=== PATIENT | female | born 1945 | race Caucasian/White ===

== ENCOUNTER 2016-12-26 12:59 | Outpatient (CLI) | payer MEDICARE, OTHER | END 2016-12-26 13:00 | disposition home or self-care (01) | DX: M85.88 Other specified disorders of bone density and structure, other site (principal) ==

== ENCOUNTER 2017-01-23 | Outpatient (CLI) | payer MEDICARE, OTHER | END 2017-01-23 17:27 | disposition critical access hospital (66) | CPT/HCPCS: A0425; A0427 ==

== ENCOUNTER 2017-01-23 17:44 | Emergency (ER) | payer MEDICARE, OTHER ==
[2017-01-23] MEDS ORDERED: SODIUM CHLORIDE 0.9% 1,000 ML IV ONE (18:13)
[2017-01-23] MEDS ORDERED: ONDANSETRON 4 MG/2 ML VIAL IVP STA (18:13)
[2017-01-23] MEDS ORDERED: ONDANSETRON 4 MG/2 ML VIAL ONE (18:22)
[2017-01-23] MEDS ORDERED: ONDANSETRON ODT 4 MG Prepack 2 TL PRN (20:19)
[2017-01-23] MEDS ORDERED: ONDANSETRON ODT 4 MG Prepack 2 TL ONE (20:28)
== END 2017-01-23 20:43 | disposition home or self-care (01) ==
DX: K52.9 Noninfective gastroenteritis and colitis, unspecified (principal); I10 Essential (primary) hypertension; Z86.79 Personal history of other diseases of the circulatory system

== ENCOUNTER 2017-05-25 10:48 | Outpatient (CLI) | payer MEDICARE, OTHER ==
[2017-05-25 19:24] LABS: BASOPHILS % (AUTO) 0.5 %; EOSINOPHILS # (AUTO) 0.1 10^3/uL (0.0-0.7); EOSINOPHILS % (AUTO) 1.3 %; HCT - HEMATOCRIT 43.9 % (37.0-47.0); HGB - HEMOGLOBIN 14.3 g/dL (12.0-16.0); LYMPHOCYTES # (AUTO) 0.9 10^3/uL (1.5-3.5); LYMPHOCYTES % (AUTO) 10.9 %; MEAN CORPUSCULAR HEMOGLOBIN 29.5 pg (27.0-31.0); MEAN CORPUSCULAR HGB CONC 32.6 g/dL (32.0-36.0); MEAN CORPUSCULAR VOLUME 90.6 fL (81.0-99.0); MEAN PLATELET VOLUME 9.8 fL (7.9-10.8); MONOCYTES # (AUTO) 0.4 10^3/uL (0.0-1.0); MONOCYTES % (AUTO) 5.6 %; NEUTROPHILS # (AUTO) 6.4 10^3/uL (1.5-6.6); NEUTROPHILS % (AUTO) 81.7 %; RED BLOOD COUNT 4.84 10^6/uL (4.20-5.40); RED CELL DISTRIBUTION WIDTH 13.2 % (12.0-15.0); UNCORRECTED WHITE BLOOD COUNT 7.9 x10^3/uL; WHITE BLOOD COUNT 7.9 x10^3/uL (4.8-10.8)
[2017-05-25 20:24] LABS: ALBUMIN/GLOBULIN RATIO 1.3 (1.0-2.2); BILIRUBIN,TOTAL 0.8 mg/dL (0.2-1.0); BUN - BLOOD UREA NITROGEN 14 mg/dL (6-20); CALCIUM 9.6 mg/dL (8.5-10.3); CARBON DIOXIDE - CO2 31 mmol/L (21-32); CHLORIDE 102 mmol/L (101-111); CREATININE 0.7 mg/dL (0.4-1.0); GFR - MDRD 83 (>89); POTASSIUM 4.2 mmol/L (3.5-5.0); SODIUM 142 mmol/L (135-145); TOTAL PROTEIN 7.5 g/dL (6.7-8.2)
[2017-05-25 20:25] LABS: GLUCOSE 58 mg/dL (70-100)
== END 2017-05-25 10:49 | disposition home or self-care (01) ==
LOC: LAB.WCP 10:48
PROVIDERS: ATTEND Physician Assistant Medical
DX: N95.8 Other specified menopausal and perimenopausal disorders (principal); R79.9 Abnormal finding of blood chemistry, unspecified
CPT/HCPCS: 36415; 80053; 82670; 84443; 85025

== ENCOUNTER 2017-06-28 09:58 | Outpatient (CLI) | payer MEDICARE, OTHER ==
--- NOTE | 2017-06-29 17:14 | Mammography Report ---
DIGITAL SCREENING MAMMOGRAM: 06/28/2017 CLINICAL INDICATION: A 71-year-old with history of benign biopsies for screening. COMPARISON: 10/2015, 10/2011, 10/2010, 08/2009, 07/2008, 03/2007. TECHNIQUE: Routine CC and MLO projections as well as bilateral laterally exaggerated craniocaudal vi ews were obtained of the breasts. The breasts again demonstrate extremely dense parenchyma bilaterally, limiting the sensitivity of saúl mography. Coarse and punctate, typically benign calcifications are present. No suspicious masses, c lustered microcalcifications, or regions of architectural distortion are identified. IMPRESSION: BENIGN FINDINGS. RECOMMENDATION: ROUTINE ANNUAL SCREENING UNLESS OTHERWISE CLINICALLY INDICATED. BIRADS CATEGORY: 2, BENIGN FINDINGS. STANDARD QUALIFYING STATEMENTS 1. This examination was reviewed with the aid of Computed-Aided Detection (CAD). 2. A negative or b enign imaging report should not delay biopsy if clinically suspicious findings are present. Consider surgical consultation if warranted. More than 5% of cancers are not identified by imaging. 3. Dense breasts may obscure an underlying neoplasm. JOB #: [id number] EXT JOB #:[id number]
== END 2017-06-28 09:59 | disposition home or self-care (01) ==
LOC: DI 09:58
PROVIDERS: ATTEND Physician Assistant Medical
DX: Z12.31 Encounter for screening mammogram for malignant neoplasm of breast (principal)
CPT/HCPCS: 77067

== ENCOUNTER 2018-01-01 14:24 | Outpatient (CLI) | payer MEDICARE, OTHER ==
--- NOTE | 2018-01-02 11:55 | XRAY Report ---
DATE OF SERVICE: 01/01/2018 THREE VIEW BILATERAL HANDS: 01/01/2018 CLINICAL INDICATION: Osteoarthritis. COMPARISON: 01/08/2015. FINDINGS: AP, lateral, and oblique views of the bilateral hands demonstrate interval worsening of interphalangeal joint and first carpometacarpal joint osteoarthritis. There is no evidence of interval fracture. No radiopaque foreign body is seen in the soft tissues. IMPRESSION: WORSENING OF OSTEOARTHRITIS FROM 01/08/2015. TD: 01/02/2018 11:53
== END 2018-01-01 14:25 | disposition home or self-care (01) ==
LOC: DI 14:24
PROVIDERS: ATTEND Physician Assistant Medical
DX: M19.041 Primary osteoarthritis, right hand (principal); M19.042 Primary osteoarthritis, left hand

== ENCOUNTER 2018-07-27 08:00 | Outpatient (CLI) | payer MEDICARE, OTHER ==
[2018-07-27 12:29] LABS: ALBUMIN 3.9 g/dL (3.2-5.5); ALBUMIN/GLOBULIN RATIO 1.3 (1.0-2.2); ALKALINE PHOSPHATASE 43 IU/L (42-121); ALT ALANINE AMINOTRANSFERASE 15 IU/L (10-60); AST ASPARTATE AMINOTRANSFERASE 24 IU/L (10-42); BILIRUBIN,TOTAL 0.8 mg/dL (0.2-1.0); BUN - BLOOD UREA NITROGEN 14 mg/dL (6-20); CALCIUM 8.9 mg/dL (8.5-10.3); CARBON DIOXIDE - CO2 29 mmol/L (21-32); CHLORIDE 101 mmol/L (101-111); CHOL/HDL RATIO 3.9 (<4.4); CHOLESTEROL 203 mg/dL; CREATININE 0.7 mg/dL (0.4-1.0); GFR - MDRD 82 (>89); GLUCOSE 99 mg/dL (70-100); HDL CHOLESTEROL 52 mg/dL; LDL CHOLESTEROL,CALCULATED 132 mg/dL; LDL/HDL RATIO 2.5 (<4.4); SODIUM 136 mmol/L (135-145); VLDL CHOLESTEROL 19 mg/dL
[2018-07-27 12:32] LABS: EOSINOPHILS # (AUTO) 0.2 10^3/uL (0.0-0.7); EOSINOPHILS % (AUTO) 4.8 %; HGB - HEMOGLOBIN 13.7 g/dL (12.0-16.0); LYMPHOCYTES # (AUTO) 1.1 10^3/uL (1.5-3.5); LYMPHOCYTES % (AUTO) 20.6 %; MEAN CORPUSCULAR HGB CONC 33.7 g/dL (32.0-36.0); MEAN PLATELET VOLUME 9.6 fL (7.9-10.8); MONOCYTES # (AUTO) 0.4 10^3/uL (0.0-1.0); MONOCYTES % (AUTO) 7.8 %; NEUTROPHILS # (AUTO) 3.4 10^3/uL (1.5-6.6); NEUTROPHILS % (AUTO) 65.8 %; PLT - PLATELET COUNT 167 10^3/uL (130-450); RED BLOOD COUNT 4.58 10^6/uL (4.20-5.40); WHITE BLOOD COUNT 5.1 x10^3/uL (4.8-10.8)
== END 2018-07-27 08:01 | disposition home or self-care (01) ==
LOC: LAB.WCP 08:00
PROVIDERS: ATTEND Physician Assistant Medical
DX: I10 Essential (primary) hypertension (principal); E78.5 Hyperlipidemia, unspecified
CPT/HCPCS: 36415; 80053; 80061; 83721; 85025

== ENCOUNTER 2018-08-31 10:07 | Outpatient (CLI) | payer MEDICARE, OTHER ==
[2018-08-31 12:46] LABS: DIGOXIN 0.4 ng/mL
[2018-09-01 14:01] LABS: HEPATITIS C ANTIBODY NON-REACTIVE (NON-REACTIVE)
== END 2018-08-31 10:08 | disposition home or self-care (01) ==
LOC: LAB.WCP 10:07
PROVIDERS: ATTEND Physician Assistant Medical
DX: I47.1 Supraventricular tachycardia (principal); E04.1 Nontoxic single thyroid nodule; Z11.59 Encounter for screening for other viral diseases
CPT/HCPCS: 36415; 80162; 84443; 86803

== ENCOUNTER 2019-05-17 08:00 | Outpatient (CLI) | payer MEDICARE, OTHER | END 2019-05-17 23:59 | LOC: LAB.R 08:00 | PROVIDERS: ATTEND Family Medicine | DX: S90.01XD Contusion of right ankle, subsequent encounter (principal) | CPT/HCPCS: 87070; 87075; 87205 ==

== ENCOUNTER 2019-05-20 14:58 | Outpatient (CLI) | payer MEDICARE, OTHER ==
--- NOTE | 2019-05-21 11:01 | XRAY Report ---
Reason: ANKLE PAIN,RIGHT Procedure Date: 05/20/2019 Accession Number: [id number] / [id number] Procedure: WCP - Ankle 2 View RT CPT Code: FULL RESULT: EXAM: RIGHT ANKLE RADIOGRAPHY EXAM DATE: 05/20/2019 03:07 PM. CLINICAL HISTORY: Ankle pain,right. COMPARISON: None. TECHNIQUE: 2 views. FINDINGS: Bones: Normal. No fractures or bone lesions. Joints: Limited evaluation of the ankle mortise due to absence of a mortise view. Within these limitations, the ankle is normally aligned. Soft Tissues: There is marked soft tissue swelling in the region of the lateral malleolus. IMPRESSION: Marked soft tissue swelling without fracture or dislocation identified. RADIA
== END 2019-05-20 14:59 | disposition home or self-care (01) ==
LOC: DI.WCP 14:58
PROVIDERS: ATTEND Physician Assistant Medical
DX: M25.571 Pain in right ankle and joints of right foot (principal); M79.89 Other specified soft tissue disorders

== ENCOUNTER 2019-05-23 10:20 | Outpatient (CLI) | payer MEDICARE, OTHER ==
[2019-05-23 18:56] LABS: BASOPHILS # (AUTO) 0.1 10^3/uL (0.0-0.1); BASOPHILS % (AUTO) 0.6 %; EOSINOPHILS # (AUTO) 0.1 10^3/uL (0.0-0.7); EOSINOPHILS % (AUTO) 1.2 %; HGB - HEMOGLOBIN 13.8 g/dL (12.0-16.0); LYMPHOCYTES # (AUTO) 0.9 10^3/uL (1.5-3.5); LYMPHOCYTES % (AUTO) 10.9 %; MEAN CORPUSCULAR HEMOGLOBIN 29.1 pg (27.0-31.0); MEAN CORPUSCULAR HGB CONC 30.7 g/dL (32.0-36.0); MEAN CORPUSCULAR VOLUME 94.7 fL (81.0-99.0); MEAN PLATELET VOLUME 11.6 fL (7.9-10.8); MONOCYTES # (AUTO) 0.5 10^3/uL (0.0-1.0); MONOCYTES % (AUTO) 5.7 %; NEUTROPHILS # (AUTO) 6.7 10^3/uL (1.5-6.6); NEUTROPHILS % (AUTO) 81.2 %; PLT - PLATELET COUNT 213 10^3/uL (130-450); RED BLOOD COUNT 4.74 10^6/uL (4.20-5.40); RED CELL DISTRIBUTION WIDTH 13.8 % (12.0-15.0); WHITE BLOOD COUNT 8.2 x10^3/uL (4.8-10.8)
[2019-05-23 19:16] LABS: URIC ACID 3.9 mg/dL (2.6-7.2)
[2019-05-23 19:39] LABS: CRP - C-REACTIVE PROTEIN < 1.0 mg/dL (0-1.0)
== END 2019-05-23 23:59 | disposition home or self-care (01) ==
LOC: LAB.WCP 10:20
PROVIDERS: ATTEND Physician Assistant Medical
DX: S90.01XD Contusion of right ankle, subsequent encounter (principal)
CPT/HCPCS: 36415; 84550; 85025; 85651; 86140

== ENCOUNTER 2019-05-25 07:47 | Outpatient (CLI) | payer MEDICARE, OTHER ==
--- NOTE | 2019-05-27 09:18 | MRI Report ---
Reason: CONTUSION OF RIGHT ANKLE,SUBSEQUENT ENCOUNTER Procedure Date: 05/25/2019 Accession Number: [id number] / [id number] Procedure: MRI - Ankle RT W/O CPT Code: FULL RESULT: EXAM: RIGHT ANKLE/HINDFOOT MRI WITHOUT CONTRAST EXAM DATE: 05/25/2019 09:00 AM. CLINICAL HISTORY: Right ankle contusion. Object fell into ankle. Swelling and bruising. COMPARISON: 05/20/2019 radiograph. TECHNIQUE: Multiplanar, multisequence T1-weighted and fluid-sensitive sequences of the ankle/hindfoot without contrast. Other: None. FINDINGS: Bones: No fractures or subluxations. No marrow edema. No bone lesions. Articular Cartilage: Unremarkable. Ligaments: The anterior and posterior tibiofibular, anterior and posterior talofibular, and calcaneofibular ligaments are intact. The deep and superficial deltoid and spring ligaments are intact. Anterior Tendons: The tibialis anterior, extensor hallucis longus, and extensor digitorum longus tendons are unremarkable. Medial Tendons: The tibialis posterior, flexor digitorum longus, and flexor hallucis longus tendons are unremarkable. Lateral Tendons: The peroneus brevis and longus are unremarkable. Achilles Tendon: Moderate Achilles tendinosis is present. Musculature: No edema or fatty atrophy. Other: No effusions. The contents of the sinus tarsi and tarsal tunnel are unremarkable. No plantar fasciitis. Global mild subcutaneous edema is present. The patient has a hematoma in the subcutaneous tissues of the anterior lateral ankle. This measures 2.9 x 2.8 x 3.8 cm. This is T2 hyperintense and of mixed echogenicity on T1-weighted imaging. There are fluid-fluid levels within it. IMPRESSION: 1. Moderate Achilles tendinosis. 2. A 3.8 cm hematoma in the subcutaneous tissues of the anterolateral ankle. RADIA
== END 2019-05-25 07:48 | disposition home or self-care (01) ==
LOC: DI 07:47
PROVIDERS: ATTEND Physician Assistant Medical
DX: S90.01XA Contusion of right ankle, initial encounter (principal); M76.61 Achilles tendinitis, right leg

== ENCOUNTER 2019-06-03 08:00 | Outpatient (CLI) | payer MEDICARE, OTHER | END 2019-06-03 08:01 | disposition home or self-care (01) | LOC: LAB.WCP 08:00 | PROVIDERS: ATTEND Physician Assistant Medical | DX: I48.0 Paroxysmal atrial fibrillation (principal); Z79.01 Long term (current) use of anticoagulants ==

== ENCOUNTER 2019-07-08 08:00 | Outpatient (CLI) | payer MEDICARE, OTHER | END 2019-07-08 23:59 | disposition home or self-care (01) | LOC: LAB.WCP 08:00 | PROVIDERS: ATTEND Physician Assistant Medical | DX: I48.0 Paroxysmal atrial fibrillation (principal); Z79.01 Long term (current) use of anticoagulants ==

== ENCOUNTER 2019-07-22 08:00 | Outpatient (CLI) | payer MEDICARE, OTHER | END 2019-07-22 23:59 | disposition home or self-care (01) | LOC: LAB.WCP 08:00 | PROVIDERS: ATTEND Physician Assistant Medical | DX: I48.0 Paroxysmal atrial fibrillation (principal); Z79.01 Long term (current) use of anticoagulants ==

== ENCOUNTER 2019-08-05 08:00 | Outpatient (CLI) | payer MEDICARE, OTHER | END 2019-08-05 08:01 | disposition home or self-care (01) | LOC: LAB.WCP 08:00 | PROVIDERS: ATTEND Physician Assistant Medical | DX: I48.0 Paroxysmal atrial fibrillation (principal); Z79.01 Long term (current) use of anticoagulants ==

== ENCOUNTER 2019-08-19 08:00 | Outpatient (CLI) | payer MEDICARE, OTHER | END 2019-08-19 23:59 | disposition home or self-care (01) | LOC: LAB.WCP 08:00 | PROVIDERS: ATTEND Physician Assistant Medical | DX: I48.0 Paroxysmal atrial fibrillation (principal); Z79.01 Long term (current) use of anticoagulants ==

== ENCOUNTER 2019-08-20 11:45 | Outpatient (CLI) | payer MEDICARE, OTHER ==
--- NOTE | 2019-08-21 10:45 | Nuclear Medicine Report ---
Reason: OSTEOMYELITIS Procedure Date: 08/21/2019 Accession Number: [id number] / [id number] Procedure: NM - Bone 3-Phase CPT Code: FULL RESULT: EXAM: TRIPLE-PHASE BONE SCAN LIMITED EXAM DATE: 08/21/2019 10:09 AM. CLINICAL HISTORY: Osteomyelitis. COMPARISON: ANKLE RT W/O 05/25/2019 8:33 AM ANKLE 2 VIEW RT 05/20/2019 2:54 PM. TECHNIQUE: Patient was injected with 29.6 mCi of technetium 99m MDP intravenously with flow phase gamma camera imaging anteriorly over bilateral feet and ankles, 5 seconds per frame for 1 minute. Subsequently, blood pool images of the bilateral feet and ankles were obtained. The patient returned 3 hours later for multiple spot images of bilateral feet and ankles. Additional delayed 24 images of the bilateral feet and ankles were obtained. FINDINGS: Flow Phase: Symmetric blood flow to both feet and ankles. Blood pool phase: Moderately intense blood pool activity is noted in the lateral right ankle probably in the region of the patient's soft tissue wound. There is symmetric flow to bilateral to remaining portions of the bilateral feet and ankles. . Delayed Phase: Small focal areas of mildly intense activity are present in both mid feet in a distribution and with an appearance most consistent with degenerative changes. No focal abnormal bone activity in the lateral right ankle corresponding to the bone in close proximity to the soft tissue ulcer. No focal suspicious activity concerning for osteomyelitis. IMPRESSION: 1. No scintigraphic findings concerning for osteomyelitis. 2. Blood pool activity in the lateral right ankle soft tissues probably represent cellulitis in close proximity to the patient's ulcer. 3. Scattered bilateral midfoot activity suspicious for osteoarthritis. RADIA
== END 2019-08-20 11:46 | disposition home or self-care (01) ==
LOC: DI 11:45
PROVIDERS: ATTEND Registered Nurse Wound Care
DX: L98.499 Non-pressure chronic ulcer of skin of other sites with unspecified severity (principal)
CPT/HCPCS: 78315

== ENCOUNTER 2019-10-01 08:50 | Outpatient (CLI) | payer MEDICARE, OTHER ==
[2019-10-01 13:36] LABS: BASOPHILS % (AUTO) 0.9 %; EOSINOPHILS # (AUTO) 0.3 10^3/uL (0.0-0.7); EOSINOPHILS % (AUTO) 5.9 %; HGB - HEMOGLOBIN 13.2 g/dL (12.0-16.0); LYMPHOCYTES # (AUTO) 1.2 10^3/uL (1.5-3.5); LYMPHOCYTES % (AUTO) 26.9 %; MEAN CORPUSCULAR HEMOGLOBIN 29.3 pg (27.0-31.0); MEAN CORPUSCULAR HGB CONC 31.3 g/dL (32.0-36.0); MEAN CORPUSCULAR VOLUME 93.8 fL (81.0-99.0); MONOCYTES # (AUTO) 0.5 10^3/uL (0.0-1.0); MONOCYTES % (AUTO) 9.8 %; NEUTROPHILS # (AUTO) 2.6 10^3/uL (1.5-6.6); NEUTROPHILS % (AUTO) 56.3 %; PLT - PLATELET COUNT 191 10^3/uL (130-450); RED CELL DISTRIBUTION WIDTH 12.6 % (12.0-15.0); WHITE BLOOD COUNT 4.6 x10^3/uL (4.8-10.8)
[2019-10-01 14:07] LABS: ALBUMIN/GLOBULIN RATIO 1.3 (1.0-2.2); ALKALINE PHOSPHATASE 44 IU/L (42-121); ALT ALANINE AMINOTRANSFERASE 16 IU/L (10-60); AST ASPARTATE AMINOTRANSFERASE 24 IU/L (10-42); BILIRUBIN,TOTAL 0.6 mg/dL (0.2-1.0); BUN - BLOOD UREA NITROGEN 17 mg/dL (6-20); CALCIUM 9.2 mg/dL (8.5-10.3); CARBON DIOXIDE - CO2 31 mmol/L (21-32); CHLORIDE 101 mmol/L (101-111); CHOL/HDL RATIO 3.2 (<4.4); CHOLESTEROL 193 mg/dL; CREATININE 0.7 mg/dL (0.4-1.0); GFR - MDRD 82 (>89); GLUCOSE 90 mg/dL (70-100); HDL CHOLESTEROL 60 mg/dL; LDL CHOLESTEROL,CALCULATED 119 mg/dL; SODIUM 142 mmol/L (135-145); TOTAL PROTEIN 7.2 g/dL (6.7-8.2); VLDL CHOLESTEROL 14 mg/dL
== END 2019-10-01 23:59 | disposition home or self-care (01) ==
LOC: LAB.WCP 08:50
PROVIDERS: ATTEND Physician Assistant Medical
DX: E78.5 Hyperlipidemia, unspecified (principal); I48.0 Paroxysmal atrial fibrillation
CPT/HCPCS: 36415; 80053; 80061; 83721; 84443; 85025

== ENCOUNTER 2020-06-07 12:27 | Emergency (ER) | payer MEDICARE, OTHER ==
--- NOTE | 2020-06-07 12:52 | ED Physician Documentation ---
PD HPI ABD PAIN - Stated complaint Stated Complaint: LOWER ABD PX - Chief complaint Chief Complaint: Abd Pain - History obtained from History obtained from: Patient - History of Present Illness Timing - onset: How many days ago (2) Timing - duration: Days (2) Timing - details: Gradual onset, Still present, Waxing and waning Quality: Cramping, Aching, Pain Location: RLQ, Suprapubic, LLQ Radiation: No: Chest, Lower back Improved by: Laying still Worsened by: Position (lying flat), Palpation. No: Eating, Breathing Associated symptoms: Fever (2 nights ago, temp to 101 but better few hours later and has not returned.), Nausea, Constipation (no BM for 3 days (had one day prior to ablation, which was 2 days ago; no feeling of stool urgency).). No: Vomiting, Diarrhea Similar symptoms before: Has not had sx before Recently seen: Surgery (She had a cardiac ablation in [facility] cardiology for atrial fib flutter 2 days ago. She was not having any abdominal pain at that time. Onset of lower abdominal pain that evening that has persisted.) Review of Systems Constitutional: reports: Fever (2 days ago, brief). denies: Myalgias, Fatigue Nose: denies: Rhinorrhea / runny nose, Congestion Throat: denies: Sore throat Cardiac: denies: Chest pain / pressure, Palpitations Respiratory: denies: Cough GI: reports: Abdominal Pain, Nausea. denies: Vomiting, Constipation (not constipated per se, had last BM 3 days ago, but little PO the past 2 days.), Diarrhea, Bloody / black stool : denies: Dysuria, Frequency Musculoskeletal: denies: Back pain, Extremity swelling Neurologic: reports: Generalized weakness. denies: Focal weakness, Numbness, Near syncope PD PAST MEDICAL HISTORY - Past Medical History Past Medical History: Yes Cardiovascular: Hypertension, Atrial fibrillation, Arrhythmia Neuro: None Endocrine/Autoimmune: None, Other GI: None [employer]: None : None HEENT: None Psych: Depression, Anxiety Musculoskeletal: Osteoarthritis, Osteopenia Derm: None - Past Surgical History Past Surgical History: Yes General: Other /[employer]: Hysterectomy, Oophrectomy, Other Cardiovascular: Other - Present Medications Home Medications: Ambulatory Orders Medication Instructions Recorded Confirmed atenoloL [Atenolol] 50 mg PO BID 07/28/13 07/05/19 Flecainide [Tambocar] 100 mg PO BID 07/05/19 07/05/19 Warfarin [Coumadin] 0.5 mg PO DAILY 07/05/19 07/05/19 clonazePAM [Clonazepam] 0.25 - 0.5 tab PO BID PRN 07/05/19 07/05/19 Amox/Clav 875/125 [Augmentin] 1 each PO Q12H #14 tablet 06/07/20 Docusate Sodium 100 mg PO DAILY #30 capsule 06/07/20 Fluconazole [Diflucan] 150 mg PO ONCE #1 tablet 06/07/20 Hydrocodone/Acetaminophen [[place] 1 each PO Q6H PRN #15 tablet 06/07/20 5-325 Tablet] Promethazine [Phenergan] 25 mg PO Q6H PRN #15 tab 06/07/20 - Allergies Allergies/Adverse Reactions: Allergies Allergy/AdvReac Type Severity Reaction Status Date / Time adhesive tape AdvReac Unknown Verified 06/07/20 12:43 bacitracin AdvReac Rash Verified 06/07/20 12:43 [From Neosporin ([id number])] meperidine HCl * AdvReac Emesis Verified 06/07/20 12:43 [From Demerol] morphine AdvReac Anxiety Verified 06/07/20 12:43 neomycin AdvReac Rash Verified 06/07/20 12:43 [From Neosporin ([id number])] polymyxin B AdvReac Rash Verified 06/07/20 12:43 [From Neosporin ([id number])] - Social History Does the pt smoke?: No Smoking Status: Never smoker Does the pt drink ETOH?: No Does the pt have substance abuse?: No - Immunizations Immunizations are current?: Yes - POLST Patient has POLST: No PD ED PE NORMAL - Vitals Vital signs reviewed: Yes - General General: Alert and oriented X 3, Well developed/nourished, Other (She appears uncomfortable due to lower to mid abdominal pain) - HEENT HEENT: Pharynx benign - Neck Neck: Supple, no meningeal sign, No adenopathy - Cardiac Cardiac: RRR, No murmur - Respiratory Respiratory: No respiratory distress, Clear bilaterally - Abdomen Abdomen: Soft, Other (Bowel sounds are present and hyperactive throughout. There is moderate to significant tenderness in the lower abdomen to palpation as well as percussion. There is some mild rebound tenderness. The upper abdomen itself is not tender but does refer tenderness to the lower abdomen. ) - Female Female : Deferred, Other (The right inguinal area shows a bandage in place without any bruising localized tenderness nor hematoma palpable.) - Rectal Rectal: Deferred - Back Back: No CVA TTP - Extremities Extremities: No deformity, No tenderness to palpate, No edema, No calf tenderness / cord - Neuro Neuro: Alert and oriented X 3, No motor deficit, Normal speech Results - Vitals Vitals: Vital Signs - 24 hr 06/07/20 06/07/20 06/07/20 12:41 13:43 15:32 Temperature 36.6 C Heart Rate 62 67 64 Respiratory 20 18 16 Rate Blood Pressure 149/88 H 150/82 H 133/73 H O2 Saturation 99 100 99 06/07/20 16:16 Temperature 36.9 C Heart Rate 69 Respiratory 18 Rate Blood Pressure 129/80 O2 Saturation 98 Oxygen O2 Source Room air - Labs Labs: Laboratory Tests 06/07/20 06/07/20 06/07/20 12:45 13:40 13:40 WBC 13.2 H RBC 4.37 Hgb 12.8 Hct 40.6 MCV 92.9 MCH 29.3 MCHC 31.5 L RDW 13.1 Plt Count 156 MPV 11.0 H Neut # (Auto) 11.6 H Lymph # (Auto) 0.8 L [place] # (Auto) 0.7 Eos # (Auto) 0.0 Baso # (Auto) 0.0 Absolute Nucleated RBC 0.00 Nucleated RBC % 0.0 PT 27.2 H INR 2.5 H APTT 51.1 H Sodium Potassium Chloride Carbon Dioxide Anion Gap BUN Creatinine Estimated GFR (MDRD) Glucose Calcium Magnesium Total Bilirubin AST ALT Alkaline Phosphatase Total Protein Albumin Globulin Albumin/Globulin Ratio Lipase Urine Color YELLOW Urine Clarity CLEAR Urine pH 7.0 Ur Specific [place] <=1.005 Urine Protein NEGATIVE Urine Glucose (UA) NEGATIVE Urine Ketones NEGATIVE Urine Occult Blood SMALL H Urine Nitrite NEGATIVE Urine Bilirubin NEGATIVE Urine Urobilinogen 0.2 (NORMAL) Ur Leukocyte Esterase NEGATIVE Urine RBC None Seen Urine WBC 0-3 Ur Squamous Epith Cells NONE SEEN Urine Bacteria None Seen Ur Microscopic Review INDICATED Urine Culture Comments NOT INDICATED 06/07/20 13:40 WBC RBC Hgb Hct MCV MCH MCHC RDW Plt Count MPV Neut # (Auto) Lymph # (Auto) [place] # (Auto) Eos # (Auto) Baso # (Auto) Absolute Nucleated RBC Nucleated RBC % PT INR APTT Sodium 136 Potassium 3.8 Chloride 100 L Carbon Dioxide 28 Anion Gap 8.0 BUN 11 Creatinine 0.7 Estimated GFR (MDRD) 82 L Glucose 109 H Calcium 9.0 Magnesium 2.1 Total Bilirubin 0.9 AST 24 ALT 19 Alkaline Phosphatase 58 Total Protein 7.3 Albumin 4.1 Globulin 3.2 Albumin/Globulin Ratio 1.3 Lipase 31 Urine Color Urine Clarity Urine pH Ur Specific [place] Urine Protein Urine Glucose (UA) Urine Ketones Urine Occult Blood Urine Nitrite Urine Bilirubin Urine Urobilinogen Ur Leukocyte Esterase Urine RBC Urine WBC Ur Squamous Epith Cells Urine Bacteria Ur Microscopic Review Urine Culture Comments - Rads (name of study) abd/pelvic CT Radiology: Prelim report reviewed (Sigmoid diverticulitis with a segment of colitis. No perforation or abscess. No free fluid or signs of vascular abnormality or hematoma.), See rad report PD MEDICAL DECISION MAKING - ED course Complexity details: reviewed results (Acute diverticulitis), re-evaluated patient (She is feeling improved enough with some medicines and fluids here. She would prefer trying to go home. There is no complication of the diverticulitis and home therapy is a reasonable approach.), considered differential (She presents as possible diverticulitis or appendicitis but could also consider urinary tract infection. Given the timing after her ablation, I would also be concern for vascular perforation and hematoma or intraperitoneal bleeding. We will get a CT abdomen with contrast to evaluate for all these), d/w patient Departure - Departure Disposition: 01 Home, Self Care Clinical Impression: History of radiofrequency ablation procedure for cardiac arrhythmia, Acute diverticulitis Abdominal pain Qualifiers: Abdominal location: lower abdomen, unspecified Qualified Code(s): R10.30 - Lower abdominal pain, unspecified Condition: Stable Record reviewed to determine appropriate education?: Yes Instructions: ED Diverticulitis Follow-Up: Lavonne Hinds PA-C [Primary Care Provider] - Prescriptions: Amox/Clav 875/125 [Augmentin] 1 each PO Q12H #14 tablet Fluconazole [Diflucan] 150 mg PO ONCE #1 tablet Docusate Sodium 100 mg PO DAILY #30 capsule Hydrocodone/Acetaminophen [[place] 5-325 Tablet] 1 each PO Q6H PRN #15 tablet PRN Reason: Pain Promethazine [Phenergan] 25 mg PO Q6H PRN #15 tab PRN Reason: Nausea / Vomiting Comments: Small frequent fluids. Use the Augmentin antibiotic twice daily for a week. Promethazine if needed for nausea. Docusate stool softener daily for the next week or 2. Add Tylenol 4 times a day for pain and hydrocodone every 6 hours if needed for worse pain. Recheck if not improving well over the next 2 to 3 days and resolved in 3 to 5 days. Return sooner if worse.
[2020-06-07 13:08] LABS: BILIRUBIN,URINE NEGATIVE (NEGATIVE); GLUCOSE, URINE (UA) NEGATIVE (NEGATIVE); KETONES,URINE (UA) NEGATIVE (NEGATIVE); LEUKOCYTE ESTERASE, URINE NEGATIVE (NEGATIVE); NITRITE,URINE NEGATIVE (NEGATIVE); OCCULT BLOOD,URINE SMALL (NEGATIVE); PROTEIN,URINE NEGATIVE (NEGATIVE); UROBILINOGEN,URINE 0.2 (NORMAL) E.U./dL (NORMAL)
[2020-06-07 13:11] LABS: CLARITY,URINE CLEAR (CLEAR)
[2020-06-07 13:20] LABS: BACTERIA,URINE None Seen /HPF (None Seen); RBC,URINE None Seen /HPF (0-5); SQUAMOUS EPITHELIAL CELL,UR NONE SEEN (<= Few)
[2020-06-07] MEDS ORDERED: LORazepam 2 MG/ML VIAL IVP STA (13:22)
[2020-06-07] MEDS ORDERED: ONDANSETRON 4 MG/2 ML VIAL IVP STA (13:22)
[2020-06-07] MEDS ORDERED: SODIUM CHLORIDE 0.9% 1,000 ML IV STA (13:22)
[2020-06-07] MEDS ORDERED: fentaNYL 100 MCG/2 ML VIAL IVP STA ×2 (13:38→14:34)
[2020-06-07] MEDS ORDERED: IOVERSOL 320 100 ML VIAL IVP ONE ×2 (13:50→15:10)
[2020-06-07 14:08] LABS: BASOPHILS % (AUTO) 0.2 %; EOSINOPHILS % (AUTO) 0.2 %; HGB - HEMOGLOBIN 12.8 g/dL (12.0-16.0); LYMPHOCYTES # (AUTO) 0.8 10^3/uL (1.5-3.5); LYMPHOCYTES % (AUTO) 5.7 %; MEAN CORPUSCULAR HEMOGLOBIN 29.3 pg (27.0-31.0); MEAN CORPUSCULAR HGB CONC 31.5 g/dL (32.0-36.0); MEAN CORPUSCULAR VOLUME 92.9 fL (81.0-99.0); MONOCYTES # (AUTO) 0.7 10^3/uL (0.0-1.0); MONOCYTES % (AUTO) 5.1 %; NEUTROPHILS # (AUTO) 11.6 10^3/uL (1.5-6.6); NEUTROPHILS % (AUTO) 88.2 %; PLT - PLATELET COUNT 156 10^3/uL (130-450); RED BLOOD COUNT 4.37 10^6/uL (4.20-5.40); RED CELL DISTRIBUTION WIDTH 13.1 % (12.0-15.0); WHITE BLOOD COUNT 13.2 x10^3/uL (4.8-10.8)
[2020-06-07 14:13] LABS: INR 2.5 (0.8-1.2); PT - PROTHROMBIN TIME 27.2 secs (9.9-12.6)
[2020-06-07 14:20] LABS: PARTIAL THROMBOPLASTIN TIME 51.1 secs (24.9-33.3)
[2020-06-07 14:23] LABS: ALBUMIN 4.1 g/dL (3.2-5.5); ALBUMIN/GLOBULIN RATIO 1.3 (1.0-2.2); BILIRUBIN,TOTAL 0.9 mg/dL (0.2-1.0); CREATININE 0.7 mg/dL (0.4-1.0); MAGNESIUM 2.1 mg/dL (1.7-2.8); TOTAL PROTEIN 7.3 g/dL (6.7-8.2)
--- NOTE | 2020-06-07 15:31 | CT Report ---
PROCEDURE: Abdomen/Pelvis W INDICATIONS: mid/lower abd pain, 2 days post ablation afib CONTRAST: IV CONTRAST: Optiray 320 ml: 100 PO CONTRAST: *NO PO CONTRAST TECHNIQUE: After the administration of oral and intravenous contrast, 5 mm thick sections acquired from the diap hragms to the symphysis. 5 mm thick coronal and sagittal reformats were acquired. For radiation dos e reduction, the following was used: automated exposure control, adjustment of mA and/or kV accordin g to patient size. COMPARISON: None. FINDINGS: Image quality: Excellent. ABDOMEN: Lung bases: Atelectasis is noted within the lingula. Heart size is mildly prominent. Solid organs: Liver and spleen are normal in size and enhancement. Gallbladder is unremarkable. Bi liary system is non dilated. Pancreas enhances normally. No adrenal nodules. Kidneys demonstrate n ormal size and enhancement, without hydronephrosis. Right renal cyst is present. Peritoneum and bowel: Bowel loops are nonobstructive. No free fluid or air. Moderate scattered stoo l. Colonic diverticula are present. There is a very minimal appearance of pericolonic stranding in th e sigmoid colon. Nodes and vessels: No retroperitoneal or mesenteric adenopathy by size criteria. Aorta and inferior vena cava are normal in size. Miscellaneous: No ventral hernias. PELVIS: Genitourinary: Bladder wall thickness is normal. Miscellaneous: No inguinal hernias or adenopathy. Bones: No suspicious bony lesions. No vertebral body compression fractures. IMPRESSION: 1. Minimal appearance of pericolonic stranding within the sigmoid colon with colonic diverticula. Joby y early colitis cannot be excluded secondary to diverticulitis. Reviewed by: Hansa Taylor MD on 06/07/2020 3:30 PM PDT Approved by: Hansa Taylor MD on 06/07/2020 3:30 PM PDT Station ID: [id number]
[2020-06-07] MEDS ORDERED: KETOROLAC 30 MG/ML VIAL IVP STA (16:04)
[2020-06-07] MEDS ORDERED: DOCUSATE SODIUM 100 MG CAPSULE PO STA (16:04)
[2020-06-07] MEDS ORDERED: cefTRIAXone 1 GM VIAL IVP STA (16:04)
[2020-06-07 16:18] VITALS: BP 129/80
== END 2020-06-07 16:30 | disposition home or self-care (01) ==
LOC: ED 12:27
DX: K57.32 Diverticulitis of large intestine without perforation or abscess without bleeding (principal); I48.91 Unspecified atrial fibrillation; Z79.01 Long term (current) use of anticoagulants; I10 Essential (primary) hypertension
CPT/HCPCS: 36415; 74177; 80053; 81001; 83690; 83735; 85025; 85610; 85730; 96361; 96374; 96375; 96376; 99284; 99285; A9270; J2060; Q9967; 81003; 87086

== ENCOUNTER 2020-08-24 11:42 | Outpatient (CLI) | payer MEDICARE, OTHER ==
--- NOTE | 2020-08-24 12:16 | XRAY Report ---
PROCEDURE: Knee 3 View BILAT INDICATIONS: KNEE PAIN,BILATERAL TECHNIQUE: 4 views of the bilateral knee(s) were acquired. COMPARISON: None. FINDINGS: Bones: No fractures or dislocations. Mild bilateral tricompartmental osteoarthritis is seen more pro minent in medial femoral tibial compartments. No patellar subluxation. No suspicious bony lesions. Soft tissues: No joint effusion. No suspicious soft tissue calcifications. IMPRESSION: Mild bilateral tricompartmental osteoarthritis more prominent in medial femoral tibial c ompartment. Reviewed by: Osmany Awad MD on 08/24/2020 11:15 AM BO Approved by: Osmany Awad MD on 08/24/2020 11:15 AM AKJAYDEN Station ID: [id number]
== END 2020-08-24 11:43 | disposition home or self-care (01) ==
LOC: DI 11:42
PROVIDERS: ATTEND Physician Assistant Medical
DX: M17.0 Bilateral primary osteoarthritis of knee (principal)

== ENCOUNTER 2025-11-07 18:24 | Inpatient (IN) ==
--- NOTE | 2025-11-07 19:13 | ED Physician Documentation ---
History of Present Illness Stated complaint Stated Complaint: FEELING FAINT Chief complaint Chief Complaint: General History obtained from History obtained from: Patient, Family and EMS History of Present Illness Pain level max: 0 Pain level now: 0 Additonal information Additional information: Patient is a 79-year-old female who was brought in by ambulance tonight from home. Her accompanies her and gives most of the history. He states that she was recently at detox in [place] as she had been inappropriately using benzodiazepines for the past 3 to 4 months. He states that he thought they were going to taper her off of the benzodiazepines but they abruptly stopped them 2 days ago and started her on other medications. He states that she fell on October 27 and has been having some back pain since that time. He states that they went to the emergency department at [facility] today and was diagnosed with a closed L3 compression fracture. Had a negative head CT and pelvis CT reportedly. Reportedly had normal blood work as well. He states that she is not acting like herself. Slower to respond. Difficulty walking and weakness. She states that she has not been eating and drinking over the past 2 days and "feels terrible". She ended up taking about 1.5 mg of lorazepam and clonazepam when she got home today. She states that that did not help her feel better. No fevers or chills. No cough or congestion. No abdominal pain. No focal neurological deficits. Review of Systems Constitutional Denies: Fever or Chills Ears, nose, mouth, and throat Denies: Neck pain Respiratory Denies: Cough Gastrointestinal Denies: Abdominal pain or Vomiting Genitourinary Denies: Painful urination, Urinary frequency or Urinary urgency Musculoskeletal Denies: Neck pain Integumentary/Breast Denies: Rash Neurological Denies: Headache, Focal weakness or Weakness in extremities Meds/Allgy Home Medications Ambulatory Orders Medication Instructions Recorded Confirmed atenolol 25 mg tablet 50 mg PO BID 07/28/13 clonazepam 0.5 mg tablet 0.25 - 0.5 tab PO BID PRN An xiety 07/05/19 11/07/25 flecainide 50 mg tablet 100 mg PO BID 07/05/1911/07 warfarin 1 mg tablet 0.5 mg PO DAILY 07/05/1908/15 Augmentin 875 mg-potassium 1 ea PO Q12H #14 tabs 06/0711/07/25 clavulanate 125 mg tablet docusate sodium 100 mg capsule 100 mg PO DAILY ##30 11/07/25 hydrocodone 5 mg-acetaminophen 325 1 ea PO Q6H PRN Bina n #15 tabs 06/07/20 11/07/25 mg tablet (Lott) promethazine 25 mg tablet 25 mg PO Q6H PRN Nausea / Vo miting 06/07/20 #15 tabs Allergies Allergies Allergy/AdvReac Type Severity Reaction Status Date / Time adhesive tape AdvReac Unknown Verified 11/07/25 18:41 bacitracin (From Neosporin AdvReac Rash Verified 11/07/25 18:41 ([id number])) meperidine HCl * (From AdvReac Emesis Verified 11/07/25 18:41 Demerol) morphine AdvReac Anxiety Verified 11/07/25 18:41 neomycin (From Neosporin AdvReac Rash Verified 11/07/25 18:41 ([id number])) polymyxin B (From Neosporin AdvReac Rash Verified 11/07/25 18:41 ([id number])) PFSH Active Problems All Active Problems (Updated 11/07/25 @ 20:48 by Jermaine Wilder MD) Closed compression fracture of L3 vertebra (Acute) Polypharmacy (Acute) Altered mental status (Acute) Acute diverticulitis (Acute) History of radiofrequency ablation procedure for cardiac arrhythmia (Acute) Abdominal pain (Acute) Gastroenteritis (Acute) Anxiety (Acute) URI (upper respiratory infection) (Acute) PAC (premature atrial contraction) (Acute) Palpitations (Acute) Social History Social History Do you feel safe in your home environment?: Yes History of physical, verbal, emotional, or financial abuse?: No POLST Patient has POLST: No Exam Exam Vital Signs: Vital Signs x48h Temp Pulse Resp BP Pulse Ox 11/07/25 18:42 60 162/88 H 96 11/07/25 18:34 36.5 C 60 16 162/88 H 96 Constitutional normal general appearance and no apparent distress Patient is slow to respond HENMT normocephalic, head/scalp atraumatic and TMs normal bilaterally Dry lips and tongue Eyes PERRL and EOMs intact bilaterally Neck/C-Spine trachea midline and cervical spine nontender Respiratory breath sounds equal bilaterally and normal respiratory effort Cardiovascular normal heart rate noted and regular rhythm noted Gastrointestinal abdomen soft to palpation, nontender to palpation and nondistended Extremities full ROM Neurology oral communication instructor II-XII intact, no focal motor deficit noted, no sensory deficits noted, gait normal, speech normal and GCS 15 normal cerebellar testing Psychiatry mental status grossly normal and oriented x3 Skin skin color normal Results Vitals Vitals: Vital Signs - 24 hr 11/07/25 18:34 11/07/25 18:42 11/07/25 19:34 Temperature 36.5 C Temperature Source Temporal Artery Scan Pulse Rate 60 60 Respiratory Rate 16 Blood Pressure 162/88 H 162/88 H O2 Saturation 96 96 O2 Source Room air Room air Pain Intensity 10 7 11/07/25 20:11 11/07/25 20:15 11/07/25 20:34 Temperature Temperature Source Pulse Rate Respiratory Rate Blood Pressure O2 Saturation O2 Source Pain Intensity 8 8 8 Oxygen O2 Source Room air Labs Labs: Laboratory Tests 11/07/25 11/07/25 19:46 20:21 WBC 7.8 RBC 4.66 Hgb 14.2 Hct 44.6 MCV 95.7 MCH 30.5 MCHC 31.8 L RDW 11.9 L Plt Count 220 MPV 10.9 H Neut # (Auto) 6.1 Lymph # (Auto) 1.0 L Dickenson # (Auto) 0.6 Eos # (Auto) 0.1 Baso # (Auto) 0.0 Absolute Nucleated RBC 0.00 Nucleated RBC % 0.0 Sodium 140 Potassium 3.8 Chloride 105 Carbon Dioxide 29 Anion Gap 6.0 BUN 10 Creatinine 0.5 L Estimated GFR (MDRD) 119 Glucose 100 Calcium 8.7 Magnesium 2.0 Total Bilirubin 0.3 AST 16 ALT 13 Alkaline Phosphatase 72 Total Creatine Kinase 60 Total Protein 6.1 L Albumin 3.8 Globulin 2.3 Albumin/Globulin Ratio 1.7 Lipase 19 TSH 0.76 Urine Color Yellow Urine Clarity Clear Urine pH 7.0 Ur Specific [place] 1.010 Urine Protein Negative Urine Glucose (UA) Negative Urine Ketones Negative Urine Occult Blood Small Urine Nitrite Negative Urine Bilirubin Negative Urine Urobilinogen 0.2 (NORMAL) Ur Leukocyte Esterase Negative Urine RBC 0-5 Urine WBC 0-3 Ur Squamous Epith Cells MANY Squamous H Urine Bacteria None Seen Ur Microscopic Review INDICATED Urine Culture Comments NOT INDICATED Salicylates < 1.5 Urine Opiates Screen NEGATIVE Ur Buprenorphine Scrn NEGATIVE Ur Oxycodone Screen NEGATIVE Urine Methadone Screen NEGATIVE Urine Fentanyl Screen Negative Acetaminophen 11.9 Ur Barbiturates Screen POSITIVE H Ur Tricyclics Screen NEGATIVE Ur Phencyclidine Scrn NEGATIVE Ur Amphetamine Screen NEGATIVE U Methamphetamines Scrn NEGATIVE U Benzodiazepines Scrn POSITIVE H Urine Cocaine Screen NEGATIVE U Cannabinoids Screen NEGATIVE Ur Drug Screen Comment CUTOFF CONC BELOW: Ethyl Alcohol < 10.0 PD Medical Decision Making ED course Complexity details: reviewed results, re-evaluated patient, considered differential and d/w patient ED course: 79-year-old female with altered mental status, suspect this is likely secondary to polypharmacy secondary to recent influx of medications at the detox facility that she was at. She had a head CT that was reportedly negative earlier today at [facility] along with a reportedly negative pelvis CT. Reportedly her lumbar spine CT showed an L3 compression fracture consistent with her fall 2 weeks ago. Attempted to obtain records, was unable to obtain records tonight from [facility]. Patient did improve with IV fluids and time in the emergency department but is still not acting like herself per . Still slow to respond and appears altered. Given that she has persistent altered mental status, will place in observation overnight. Discussed with the hospitalist. May benefit from a telepsychiatry consult in the morning to help with medication adjustment. She may also need a taper from benzodiazepines. Discussed case with the hospitalist who accepts. This document was made in part using voice recognition software. While efforts are made to proofread this document, sound alike and grammatical errors may occur. Discharge Plan Discharge Patient Disposition: ED Place in Observation Condition: Stable Clinical Impression: Altered mental status, Polypharmacy, Closed compression fracture of L3 vertebra Prescriptions: No Action atenolol 25 MG tablet 50 mg PO BID clonazepam 0.5 MG tablet 0.25 - 0.5 tab PO BID PRN (Reason: Anxiety) flecainide 50 MG tablet 100 mg PO BID warfarin 1 MG tablet 0.5 mg PO DAILY hydrocodone-acetaminophen [Lott] 1 EACH tablet 1 ea PO Q6H PRN (Reason: Pain) Qty: 15 0RF docusate sodium 100 MG capsule 100 mg PO DAILY Qty: 30 0RF amoxicillin-pot clavulanate 1 TAB tablet 1 ea PO Q12H Qty: 14 0RF promethazine 25 MG tablet 25 mg PO Q6H PRN (Reason: Nausea / Vomiting) Qty: 15 0RF Print Language: Chilean Stand Alone Forms: PCP List
[2025-11-07] MEDS: SODIUM CHLORIDE 0.9% 1,000 ML IV STA (19:20)
[2025-11-07] MEDS: ACETAMINOPHEN 325 MG TABLET PO STA (19:34)
[2025-11-07 19:55] LABS: HCT - HEMATOCRIT 44.6 % (37.0-47.0); HGB - HEMOGLOBIN 14.2 g/dL (12.0-16.0); MEAN PLATELET VOLUME 10.9 fL (7.9-10.8); NRBC ABSOLUTE COUNT (AUTO) 0.00 x10^3/uL; NUCLEATED RED BLOOD CELLS AUTO 0.0 /100WBC; PLT - PLATELET COUNT 220 10^3/uL (130-450); RED CELL DISTRIBUTION WIDTH 11.9 % (12.0-15.0)
[2025-11-07 20:21] LABS: GLUCOSE, URINE (UA) Negative (NEGATIVE); KETONES,URINE (UA) Negative (NEGATIVE); OCCULT BLOOD,URINE Small (NEGATIVE)
[2025-11-07 20:33] LABS: AMPHETAMINE SCREEN,URINE NEGATIVE (NEGATIVE); BARBITURATE SCREEN,UR POSITIVE (NEGATIVE); BENZODIAZEPINES SCREEN, URINE POSITIVE (NEGATIVE); BUPRENORPHINE SCREEN, URINE NEGATIVE (NEGATIVE); COCAINE SCREEN URINE NEGATIVE (NEGATIVE); METHADONE SCREEN, URINE NEGATIVE (NEGATIVE); METHAMPHETAMINES SCREEN, URINE NEGATIVE (NEGATIVE); OPIATE SCREEN, URINE NEGATIVE (NEGATIVE); THC CANNABINOID SCREEN, URINE NEGATIVE (NEGATIVE)
[2025-11-07] MEDS: HYDROmorphone 0.5 MG/0.5 ML SYRINGE IVP STA (20:34)
[2025-11-07 20:43] LABS: ALT ALANINE AMINOTRANSFERASE 13 IU/L (10-60); AST ASPARTATE AMINOTRANSFERASE 16 IU/L (10-42); BUN - BLOOD UREA NITROGEN 10 mg/dL (6-20); CARBON DIOXIDE - CO2 29 mmol/L (21-32); CK- CREATINE KINASE 60 IU/L (30-223); CREATININE 0.5 mg/dL (0.6-1.3); ETOH - ETHANOL < 10.0 mg/dL; GFR - MDRD 119 (>89)
[2025-11-07 20:45] LABS: SQUAMOUS EPITHELIAL CELL,UR MANY Squamous (<= Few)
[2025-11-07] MEDS ORDERED: ONDANSETRON 4 MG/2 ML VIAL IVP PRN (21:52)
[2025-11-07] MEDS ORDERED: ACETAMINOPHEN 325 MG TABLET PO PRN (21:52)
--- NOTE | 2025-11-07 22:06 | HISTORY & PHYSICAL EXAMINATION ---
Chief Complaint Chief Complaint Chief Complaint: AMS History of Present Illness Admitted From Admitted From:: rehab facility History Obtained From Records Reviewed: PDMP, meds list from detox History obtained from: Patient and . History of Present Illness HPI Comment/Other: 79-year-old female who presents to the emergency department complaining of not feeling well. She has had a rough several months. She has a past medical history of atrial fibrillation, pacemaker placement, glaucoma, GERD, hypertension. 4 to 6 months ago she began to experience uncontrollable anxiety. She would wake up with night terrors. She would have uncontrollable feelings of anxiety and would be overcome by them. She saw her primary care doctor about this and began to take benzodiazepines. From the middle of April until currently she has multiple benzodiazepine prescriptions. This is per my review of her PDMP. She has been prescribed clonazepam, alprazolam, and lorazepam. It is difficult to ascertain exactly what drugs she has been taking when but it seems that she had previously been on clonazepam 0.5 and then for the last 6 weeks has been taking approximately 5 to milligram tablets of lorazepam a day. Her last benzodiazepine use was a milligram of lorazepam at 1230 today and 0.5 mg of clonazepam at 1700 today. She and her recognize that she was having a problem with thebenzodiazepine usage. What made them realize this was that she had a night terror, jumped up out of bed and then had a fall. This fall resulted in back pain. They then sought assistance. They ultimately checked into a rehab facility called [facility] in [place]. This was on 11/05/2025. She checked out of their very early this morning because she was having severe back pain which was not helped by the gabapentin and Tylenol that she was administered. She was having terrible back pain. Her then took her to the emergency department at [facility]. She had workup there which included a CT of the head and a CT of the L-spine. At that time she was diagnosed with an L3 compression fracture. This explained her back pain. She and her were unhappy with the treatment she received at [facility] and therefore he brought her home here to [facility]. The medication regimen that she was on at [facility] included a 6-day taper of phenobarbital, Tylenol as needed, clonidine 0.1 every 6 hours, gabapentin 100 to 300 mg 3 times daily as needed, hydroxyzine 50 to 100 mg 4 times daily as needed, Keppra 500 mg twice daily, Zofran 8 mg every 6 hours as needed, quetiapine 50 to 150 mg daily as needed. Her normal medications were included in these medications and they are latanoprost drops, omeprazole, rivaroxaban 20 mg daily, amlodipine 5 mg daily Upon arriving home. Her realizes that she has altered mental status. She is slower to respond. She is generally weak and having difficulty walking. She says she cannot find things within her home and she cannot speak correctly. She states that she has had very little to eat or drink over the last 2 days and just feels terrible. When she got home and felt terrible she tried to take several doses of benzodiazepines as detailed above. This did not make her feel better and therefore she decided to come to the emergency department. At baseline she is an active independent 79-year-old. She lives in a senior living community in [place] and is very happy there. She plays bridge and has coffee with friends quite often. She drives and meets all of her own needs. She lives with her . They have a son who lives in [place] and is available to them as needed. Her PCP is Dr. Mane at [facility]. She does have a POLST at home she states her CODE STATUS is DNR but okay to intubate. Esdras is surrogate medical decision maker. Meds/Allgy Home Medications Ambulatory Orders Medication Instructions Recorded Confirmed atenolol 25 mg tablet 50 mg PO BID 07/28/13 clonazepam 0.5 mg tablet 0.25 - 0.5 tab PO BID PRN An xiety 07/05/19 11/07/25 flecainide 50 mg tablet 100 mg PO BID 07/05/1911/07 warfarin 1 mg tablet 0.5 mg PO DAILY 07/05/1908/15 Augmentin 875 mg-potassium 1 ea PO Q12H #14 tabs 06/0711/07/25 clavulanate 125 mg tablet docusate sodium 100 mg capsule 100 mg PO DAILY ##30 11/07/25 hydrocodone 5 mg-acetaminophen 325 1 ea PO Q6H PRN Bina n #15 tabs 06/07/20 11/07/25 mg tablet (Livingston) promethazine 25 mg tablet 25 mg PO Q6H PRN Nausea / Vo miting 06/07/20 #15 tabs Allergies Allergies Allergy/AdvReac Type Severity Reaction Status Date / Time adhesive tape AdvReac Unknown Verified 11/07/25 18:41 bacitracin (From Neosporin AdvReac Rash Verified 11/07/25 18:41 ([id number])) meperidine HCl * (From AdvReac Emesis Verified 11/07/25 18:41 Demerol) morphine AdvReac Anxiety Verified 11/07/25 18:41 neomycin (From Neosporin AdvReac Rash Verified 11/07/25 18:41 ([id number])) polymyxin B (From Neosporin AdvReac Rash Verified 11/07/25 18:41 ([id number])) PFSH Active Problems All Active Problems (Updated 11/07/25 @ 22:21 by TYREE Luevano) Atrial fibrillation (Chronic) Closed compression fracture of L3 vertebra (Acute) Polypharmacy (Acute) Altered mental status (Acute) Acute diverticulitis (Acute) History of radiofrequency ablation procedure for cardiac arrhythmia (Acute) Abdominal pain (Acute) Gastroenteritis (Acute) Anxiety (Acute) URI (upper respiratory infection) (Acute) PAC (premature atrial contraction) (Acute) Palpitations (Acute) Social History Social History Smoking Status: Never smoker Do you feel safe in your home environment?: Yes History of physical, verbal, emotional, or financial abuse?: No POLST Patient has POLST: Yes POLST on file?: No POLST CPR Status: Do Not Attempt Resuscitation (DNAR) / Allow Natural Review of Systems Status of ROS: 10 or more systems reviewed and unremarkable except as noted in history and below Prior Level of Functionality: Independent does have a cane which she uses occasionally Exam Exam Vital Signs: Vital Signs x48h Temp Pulse Resp BP Pulse Ox 11/07/25 22:21 76 18 134/67 H 98 11/07/25 18:42 60 162/88 H 96 11/07/25 18:34 36.5 C 60 16 162/88 H 96 Constitutional normal general appearance and no apparent distress HENMT normocephalic, head/scalp atraumatic, oral mucous membranes normal and dentition normal Eyes PERRL, EOMs intact bilaterally, conjunctivae normal and no scleral icterus Neck/C-Spine trachea midline and cervical spine nontender Lymph no lymphadenopathy noted Chest inspection of chest normal Respiratory breath sounds equal bilaterally, normal respiratory effort and clear to auscultation bilaterally Cardiovascular normal heart rate noted and regular rhythm noted Gastrointestinal abdomen soft to palpation Back/Pelvis spine normal to inspection and no lumbar spine tenderness (lower back ttp) Extremities normal to inspection chronic edema and stasis changes to right ankle Neurology bilingual patient support caseworker II-XII intact, no focal motor deficit noted, gait normal, speech normal and GCS 15 she is slightly slow in her thinking and speech, but seems to be able to answer most of my questions appropriately. Psychiatry oriented x3 and cooperative slightly slow. Skin skin color normal and no rash Conclusion/Plan Problem List (1) Altered mental status: Plan: likely related to polypharmacy. See below. Discussed with Dr. Wilder in the emergency department decision was made to admit this patient to observation status. We will monitor her mental status. We will treat her benzodiazepine withdrawal with a long acting benzodiazepine which we will taper. We will monitor her for any seizure activity. I think it is quite possible that her mental status will clear overnight as she metabolizes the remainder of the medications that she has received in the last 24 to 48 hours. And she will be able to go home safely with her . Her neurological exam is nonfocal she just has general slowing. I believe this is not secondary to CVA. I will monitor the patient overnight on telemetry. For her anxiety I will consider getting a telepsych consultation. I will consult social work for assistance with both mental health resources and substance abuse resources. (2) Polypharmacy: Plan: The medication regimen that she was on at [facility] included a 6-day taper of phenobarbital, Tylenol as needed, clonidine 0.1 every 6 hours, gabapentin 100 to 300 mg 3 times daily as needed, hydroxyzine 50 to 100 mg 4 times daily as needed, Keppra 500 mg twice daily, Zofran 8 mg every 6 hours as needed, quetiapine 50 to 150 mg daily as needed. Her normal medications were included in these medications and they are latanoprost drops, omeprazole, rivaroxaban 20 mg daily, amlodipine 5 mg daily I think this patients AMS is related to polypharmacy. She seems to be slowly clearing to a normal mental status, but is not well enough to go home yet. She has a benzodiazepine addiction. I would like to slowly taper her off of benzodaizepines. She expresses the desire to stop these meds. She does need some help with her anxiety. I will start her on a very low dose of librium. 12.5mg every 6 hours. I will treat her symptoms w Clonidine, and hydryxoyzine as needed. She denies any past hx of addiction, never smoker, denies Etoh. (3) Closed compression fracture of L3 vertebra: Plan: Diagnosed earlier today and likely related to a fall that happened on 10 27 as she has had back pain since that time. At home she is on Livingston half a tablet several times a day as needed for chronic foot pain. We will reinstitute Livingston while she is here. We will give her Dilaudid if she has pain that is not controlled by the Livingston. I would like to have her seen by physical therapy but I am not sure I have the services available to her at this time. She tells me that she has a hx of osteopenia and has been on fosamax in the past. (4) Atrial fibrillation: Plan: Chronic longstanding atrial fibrillation. This patient has a pacemaker in place. I will continue her DOAC therapy. Substituting Eliquis for the Xarelto that she is on at home. She is on amlodipine 5 mg daily. I will continue that. I see other antiarrhythmics and cardiac medications on the chart but she does not give me a history of currently taking these. On the chart Plan I have spent 80 minutes in the care of this patient today. This includes time [id number], review and ordering of diagnostic imaging and laboratory studies and consultation with other providers. Monitoring the patient's signs symptoms, evaluation of medication effectiveness and patient's response to treatment. Lab Results Lab results reviewed: Yes 11/07/25 19:46 11/07/25 20:21 Core Measures Anticipated LOS I expect patient to be DC'd or transferred within 96 hours.: Yes DVT/VTE - Prophylaxis VTE/DVT Device ordered at admit?: Yes VTE/DVT Prophylaxis med ordered at admit?: No Not Ordered - Medical Reason: Not indicated (eliquis)
[2025-11-07] MEDS: LACTATED RINGERS 1,000 ML IV SCH (23:06)
[2025-11-07] MEDS: SODIUM CHLORIDE FLUSH 0.9% 10 ML SYRINGE IVP PRN (23:06)
[2025-11-07] MEDS: FLECAINIDE 50 MG TABLET PO SCH (23:09)
[2025-11-07] MEDS: APIXABAN 5 MG TABLET PO SCH (23:10)
[2025-11-08] MEDS: SODIUM CHLORIDE FLUSH 0.9% 10 ML SYRINGE IVP SCH (00:02)
[2025-11-08 01:02] LABS: ALT ALANINE AMINOTRANSFERASE 12.0 IU/L (10-60); AST ASPARTATE AMINOTRANSFERASE 17.0 IU/L (10-42); BUN - BLOOD UREA NITROGEN 8.0 mg/dL (6-20); CARBON DIOXIDE - CO2 28.0 mmol/L (21-32); CREATININE 0.5 mg/dL (0.6-1.3); GFR - MDRD 119.0 (>89)
[2025-11-08] MEDS: HYDROcod/ACETAM 5/325 MG TABLET PO PRN (02:40)
[2025-11-08] MEDS: HYDROmorphone 0.5 MG/0.5 ML SYRINGE IVP PRN (04:49)
[2025-11-08 05:23] LABS: HCT - HEMATOCRIT 42.2 % (37.0-47.0); HGB - HEMOGLOBIN 13.5 g/dL (12.0-16.0); MEAN PLATELET VOLUME 11.2 fL (7.9-10.8); NRBC ABSOLUTE COUNT (AUTO) 0.00 x10^3/uL; NUCLEATED RED BLOOD CELLS AUTO 0.0 /100WBC; PLT - PLATELET COUNT 189 10^3/uL (130-450); RED CELL DISTRIBUTION WIDTH 11.9 % (12.0-15.0)
[2025-11-08 05:43] LABS: BUN - BLOOD UREA NITROGEN 7.0 mg/dL (6-20); CARBON DIOXIDE - CO2 27.0 mmol/L (21-32); CREATININE 0.5 mg/dL (0.6-1.3); GFR - MDRD 119.0 (>89)
[2025-11-08] MEDS: LORazepam 2 MG/ML VIAL IVP ONE (11:45)
[2025-11-08] MEDS ORDERED: KETOROLAC 15 MG/ML VIAL IVP PRN (12:30)
--- NOTE | 2025-11-08 12:35 | PROVIDER PROGRESS NOTE ---
Subjective Prog Note Date Prog Note Date: 11/08/25 Subjective Subjective: Rates her anxiety at a 12, unable to talk to me. She was able to get a dose of ativan and it got better within [address] Montes spoke with patient and this AM, and gave her a dose of librium 25mg at about 8am. but the time I am seeing her, just before noon, she is complaining of this severe anxiety. About an hour after this, she is walking in the [place] with her cane, doing well. her is out briefly, getting lunch. Current Medications Current Medications Current Medications: Current Medications Generic Name Dose Route Start Last Admin Trade Name Freq PRN Reason Stop Dose Admin Acetaminophen 650 mg 11/07/25 21:52 Acetaminophen 325 Mg Tablet PO Q4HR PRN Pain 1 to 4, or Fever Hydrocodone Bitart/Acetaminophen 1 tab 11/07/25 21:52 11/08/25 02:40 Hydrocod/Acetam 5/325 Mg Tablet PO 1 tab Q4HR PRN Administration Pain 5 to 7 Amitriptyline HCl 50 mg 11/08/25 21:00 Amitriptyline 25 Mg Tablet PO QPM WILL Apixaban 5 mg 11/07/25 22:00 11/08/25 08:38 Apixaban 5 Mg Tablet PO 5 mg BID WILL Administration Chlordiazepoxide HCl 5 mg 11/08/25 12:03 Chlordiazepoxide 5 Mg Capsule PO Q2H PRN Agitation Clonidine HCl 0.1 mg 11/07/25 21:58 11/08/25 08:38 Clonidine 0.1 Mg Tablet PO 0.1 mg Q6H PRN Administration withdrawal symptoms Hydromorphone HCl 0.5 mg 11/07/25 21:52 11/08/25 04:49 Hydromorphone 0.5 Mg/0.5 Ml Syringe IVP 0.5 mg Q2H PRN Administration Pain 8 to 10 Hydroxyzine Pamoate 50 mg 11/08/25 07:03 Hydroxyzine Pamoate 25 Mg Capsule PO Q4H PRN anxiety Lidocaine 1 patch 11/08/25 13:00 Lidocaine Patch 4% TOP DAILY WILL Ondansetron HCl 4 mg 11/07/25 21:52 Ondansetron 4 Mg/2 Ml Vial IVP Q6HR PRN Nausea / Vomiting Polyethylene Glycol 17 gm 11/09/25 09:00 Polyethylene Glycol 3350 17 Gm Packet PO DAILY WILL Sodium Chloride 10 ml 11/07/25 21:52 11/08/25 04:49 Sodium Chloride Flush 0.9% 10 Ml Syringe IVP 10 ml PRN PRN Administration NEEDED PER PROVIDER ORDERS Sodium Chloride 10 ml 11/08/25 01:00 11/08/25 08:38 Sodium Chloride Flush 0.9% 10 Ml Syringe IVP 10 ml 0100,0900,1700 WILL Administration Objective Vital Signs/Intake & Output Reviewed Vital Signs: Yes Vital Signs: Vital Signs x48h Temp Pulse Resp BP Pulse Ox 11/08/25 08:50 36.5 C 61 16 180/87 H 97 11/08/25 04:38 36.5 C 61 18 135/68 H 97 Intake & Output: Intake & Output 11/05/25 11/06/25 11/07/25 11/08/25 23:59 23:59 23:59 23:59 Intake Total 1240 / 1240 1800 / 1800 Balance 1240 / 1240 1800 / 1800 Weight (kg) 61.5 kg Objective General Appearance: positive Alert, Mild distress and Anxious Eyes Bilateral: positive Normal inspection and Conjunctivae nml ENT: positive ENT inspection nml Neck: positive Nml inspection Respiratory: positive No respiratory distress and Breath sounds nml Cardiovascular: positive Regular rate & rhythm Abdomen: positive No distention Skin: positive Color nml Neurologic/Psychiatric: positive Oriented x3 Lab Results 11/08/25 04:39 11/08/25 04:39 Other Labs: Lab Results x24hrs 11/08/25 11/08/25 11/07/25 Range/Units 04:39 00:40 20:21 WBC 6.9 (4.8-10.8) x10^3/uL RBC 4.42 (4.20-5.40) 10^6/uL Hgb 13.5 (12.0-16.0) g/dL Hct 42.2 (37.0-47.0) % MCV 95.5 (81.0-99.0) fL MCH 30.5 (27.0-31.0) pg MCHC 32.0 (32.0-36.0) g/dL RDW 11.9 L (12.0-15.0) % Plt Count 189 (130-450) 10^3/uL MPV 11.2 H (7.9-10.8) fL Neut # (Auto) 5.1 (1.5-6.6) 10^3/uL Lymph # (Auto) 1.1 L (1.5-3.5) 10^3/uL Cherry # (Auto) 0.5 (0.0-1.0) 10^3/uL Eos # (Auto) 0.1 (0.0-0.7) 10^3/uL Baso # (Auto) 0.1 (0.0-0.1) 10^3/uL Absolute Nucleated RBC 0.00 x10^3/uL Nucleated RBC % 0.0 /100WBC Sodium 140 140 140 (135-145) mmol/L Potassium 3.5 3.7 3.8 (3.5-4.5) mmol/L Chloride 106 106 105 (101-111) mmol/L Carbon Dioxide 27 28 29 (21-32) mmol/L Anion Gap 7.0 6.0 6.0 (6-13) BUN 7 8 10 (6-20) mg/dL Creatinine 0.5 L 0.5 L 0.5 L (0.6-1.3) mg/dL Estimated GFR (MDRD) 119 119 119 (>89) Glucose 107 H 111 H 100 (74-104) mg/dL Calcium 8.9 8.8 8.7 (8.5-10.3) mg/dL Magnesium 2.1 2.0 (1.7-2.3) mg/dL Total Bilirubin 0.4 0.3 (0.2-1.0) mg/dL AST 17 16 (10-42) IU/L ALT 12 13 (10-60) IU/L Alkaline Phosphatase 66 72 (42-121) IU/L Total Creatine Kinase 60 (30-223) IU/L Total Protein 6.1 L 6.1 L (6.4-8.9) g/dL Albumin 3.9 3.8 (3.2-5.5) g/dL Globulin 2.2 2.3 (2.1-4.2) g/dL Albumin/Globulin Ratio 1.8 1.7 (1.0-2.2) Lipase 19 (11-82) U/L TSH (0.34-5.60) uIU/mL Urine Color Urine Clarity (CLEAR) Urine pH (5.0-7.5) PH Ur Specific [place] (1.002-1.030) Urine Protein (NEGATIVE) mg/dL Urine Glucose (UA) (NEGATIVE) mg/dL Urine Ketones (NEGATIVE) mg/dL Urine Occult Blood (NEGATIVE) Urine Nitrite (NEGATIVE) Urine Bilirubin (NEGATIVE) Urine Urobilinogen (NORMAL) E.U./dL Ur Leukocyte Esterase (NEGATIVE) Urine RBC (0-5) /HPF Urine WBC (0-5) /HPF Ur Squamous Epith Cells (<= Few) Urine Bacteria (None Seen) /HPF Ur Microscopic Review Urine Culture Comments Salicylates < 1.5 mg/dL Urine Opiates Screen (NEGATIVE) Ur Buprenorphine Scrn (NEGATIVE) Ur Oxycodone Screen (NEGATIVE) Urine Methadone Screen (NEGATIVE) Urine Fentanyl Screen (NEGATIVE) Acetaminophen 11.9 ug/mL Ur Barbiturates Screen (NEGATIVE) Ur Tricyclics Screen (NEGATIVE) Ur Phencyclidine Scrn (NEGATIVE) Ur Amphetamine Screen (NEGATIVE) U Methamphetamines Scrn (NEGATIVE) U Benzodiazepines Scrn (NEGATIVE) Urine Cocaine Screen (NEGATIVE) U Cannabinoids Screen (NEGATIVE) Ur Drug Screen Comment Ethyl Alcohol < 10.0 mg/dL 11/07/25 Range/Units 19:46 WBC 7.8 (4.8-10.8) x10^3/uL RBC 4.66 (4.20-5.40) 10^6/uL Hgb 14.2 (12.0-16.0) g/dL Hct 44.6 (37.0-47.0) % MCV 95.7 (81.0-99.0) fL MCH 30.5 (27.0-31.0) pg MCHC 31.8 L (32.0-36.0) g/dL RDW 11.9 L (12.0-15.0) % Plt Count 220 (130-450) 10^3/uL MPV 10.9 H (7.9-10.8) fL Neut # (Auto) 6.1 (1.5-6.6) 10^3/uL Lymph # (Auto) 1.0 L (1.5-3.5) 10^3/uL Cherry # (Auto) 0.6 (0.0-1.0) 10^3/uL Eos # (Auto) 0.1 (0.0-0.7) 10^3/uL Baso # (Auto) 0.0 (0.0-0.1) 10^3/uL Absolute Nucleated RBC 0.00 x10^3/uL Nucleated RBC % 0.0 /100WBC Sodium (135-145) mmol/L Potassium (3.5-4.5) mmol/L Chloride (101-111) mmol/L Carbon Dioxide (21-32) mmol/L Anion Gap (6-13) BUN (6-20) mg/dL Creatinine (0.6-1.3) mg/dL Estimated GFR (MDRD) (>89) Glucose (74-104) mg/dL Calcium (8.5-10.3) mg/dL Magnesium (1.7-2.3) mg/dL Total Bilirubin (0.2-1.0) mg/dL AST (10-42) IU/L ALT (10-60) IU/L Alkaline Phosphatase (42-121) IU/L Total Creatine Kinase (30-223) IU/L Total Protein (6.4-8.9) g/dL Albumin (3.2-5.5) g/dL Globulin (2.1-4.2) g/dL Albumin/Globulin Ratio (1.0-2.2) Lipase (11-82) U/L TSH 0.76 (0.34-5.60) uIU/mL Urine Color Yellow Urine Clarity Clear (CLEAR) Urine pH 7.0 (5.0-7.5) PH Ur Specific [place] 1.010 (1.002-1.030) Urine Protein Negative (NEGATIVE) mg/dL Urine Glucose (UA) Negative (NEGATIVE) mg/dL Urine Ketones Negative (NEGATIVE) mg/dL Urine Occult Blood Small (NEGATIVE) Urine Nitrite Negative (NEGATIVE) Urine Bilirubin Negative (NEGATIVE) Urine Urobilinogen 0.2 (NORMAL) (NORMAL) E.U./dL Ur Leukocyte Esterase Negative (NEGATIVE) Urine RBC 0-5 (0-5) /HPF Urine WBC 0-3 (0-5) /HPF Ur Squamous Epith Cells MANY Squamous H (<= Few) Urine Bacteria None Seen (None Seen) /HPF Ur Microscopic Review INDICATED Urine Culture Comments NOT INDICATED Salicylates mg/dL Urine Opiates Screen NEGATIVE (NEGATIVE) Ur Buprenorphine Scrn NEGATIVE (NEGATIVE) Ur Oxycodone Screen NEGATIVE (NEGATIVE) Urine Methadone Screen NEGATIVE (NEGATIVE) Urine Fentanyl Screen Negative (NEGATIVE) Acetaminophen ug/mL Ur Barbiturates Screen POSITIVE H (NEGATIVE) Ur Tricyclics Screen NEGATIVE (NEGATIVE) Ur Phencyclidine Scrn NEGATIVE (NEGATIVE) Ur Amphetamine Screen NEGATIVE (NEGATIVE) U Methamphetamines Scrn NEGATIVE (NEGATIVE) U Benzodiazepines Scrn POSITIVE H (NEGATIVE) Urine Cocaine Screen NEGATIVE (NEGATIVE) U Cannabinoids Screen NEGATIVE (NEGATIVE) Ur Drug Screen Comment CUTOFF CONC BELOW: Ethyl Alcohol mg/dL Assessment/Plan Problem List (1) Anxiety: Impression: Long discussion again with patient and . her anxiety is out of control and is severely lifestyle limiting. For instance, she is unable to even think about what she wants for lunch, but several minutes after being medicated with IV lorazepam, she is able to start to eat. She is horribly disturbed by nightmares. She does not have lilliputian images in these nightmares, but they are disturbing to her. She finds that they happen to her when she is asleep. they are not hallucinations. But she does wake up terrified from the imagery that she is experiencing. There is no hx of dementia in her family. She has tried different SSRIs to no effect, but the problem seems to be that she starts these medications, her anxiety worsens after several days, then she stops them. At that point, she is left with nothing but to go back on the benzodiazepines, which seem to help less and less. I am going to start her on some amitriptylline. Zan giving her a dose now, and will plan on a dose at bedtime. I am going to place her on a CIWA based Librium dosage. My plan is to see how much she needs to control her anxiety, then design a taper from that point down. The Elavil will be more simple to titrate up, even at home, every 2-3 days, to control her anxiety. As part of our discussion today, we talked about her symptoms. Several times, she says that she feels like a drug addict, and that she has a drug problem. 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 As I spend more time with this patient, I believe that she has severe, and uncontrolled anxiety. Escalation of benzodiazepines over the course of 6 months just left her with anxiety that was more and more out of control, and nothing else was helping. SSRIs, when she did take them for 2-4 days only made things worse for her. 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 For today, i am instituting a symptom triggered loading of librium. That should give me an idea of what her dosing should be. from that point, i can set a regimen and a taper. SSRI/SSNI are not going to work for this patient. She has no suicidal ideation. I am going to start her on amitriptylline. I am giving her a dose today, then a dose tonight. this medication can be titrated every 2-3 days, and does not have the therapeutic lag that is seen in the SSRI/SSNI class. (2) Altered mental status: Impression: This has resolved. This was related to polypharmacy, and was improving by the time she got up to the IP floor around 2200 last night. However, she called the RN about every hour all night. her symptoms were severe. She is having severe anxity today. it does not show in her VS or her PE, but she describes intense psychological discomfort. (3) Polypharmacy: Impression: The medication regimen that she was on at [facility] included a 6-day taper of phenobarbital, Tylenol as needed, clonidine 0.1 every 6 hours, gabapentin 100 to 300 mg 3 times daily as needed, hydroxyzine 50 to 100 mg 4 times daily as needed, Keppra 500 mg twice daily, Zofran 8 mg every 6 hours as needed, quetiapine 50 to 150 mg daily as needed. Her normal medications were included in these medications and they are latanoprost drops, omeprazole, rivaroxaban 20 mg daily, amlodipine 5 mg daily Her AMS is improved, but her anxiety is severe. I am proceeding with caution as we try to find a way to get her comfortable enough to transition home. (4) Closed compression fracture of L3 vertebra: Impression: IV dilaudid is helpful, [place] somewhat as well. Her renal function is normal. I will try some IV toradol PRN and add a lidoderm patch as well. (5) Atrial fibrillation: Impression: Chronic and stable, no RVR, I am stopping tele. Eliquis continued. This patient's diagnosis and treatment plan was discussed this AM with attending physician as a part of multi disciplinary rounding meeting. I have spent 65 minutes in the care of this patient today. This includes time [id number], review and ordering of diagnostic imaging and laboratory studies . Monitoring the patient's signs symptoms, evaluation of medication effectiveness and patient's response to treatment.
[2025-11-08] MEDS: AMITRIPTYLINE 10 MG TABLET PO ONE (14:39)
[2025-11-08] MEDS: AMITRIPTYLINE 25 MG TABLET PO SCH (20:23)
[2025-11-09 05:43] LABS: HCT - HEMATOCRIT 39.9 % (37.0-47.0); HGB - HEMOGLOBIN 12.8 g/dL (12.0-16.0); MEAN PLATELET VOLUME 10.6 fL (7.9-10.8); NRBC ABSOLUTE COUNT (AUTO) 0.00 x10^3/uL; NUCLEATED RED BLOOD CELLS AUTO 0.0 /100WBC; PLT - PLATELET COUNT 192 10^3/uL (130-450); RED CELL DISTRIBUTION WIDTH 11.9 % (12.0-15.0)
[2025-11-09] MEDS: LORazepam 2 MG/ML VIAL IVP PRN (05:46)
[2025-11-09 06:01] LABS: BUN - BLOOD UREA NITROGEN 9.0 mg/dL (6-20); CARBON DIOXIDE - CO2 28.0 mmol/L (21-32); CREATININE 0.6 mg/dL (0.6-1.3); GFR - MDRD 97.0 (>89)
--- NOTE | 2025-11-09 12:37 | Discharge Summary ---
"Discharge Summary Admit Date: 11/07/25 Discharge Date: 11/09/25 Discharging Provider: Mona Vazquez PA-C Primary Care Provider: Lavonne Hinds PA-C Code Status: Do Not Attempt Resuscitation DIAGNOSES Discharge Diagnoses with Status of Each Condition: Anxiety, persistent Altered mental status, resolved Polypharmacy, resolved L3 compression fracture Atrial fibrillation chronic and stable HPI History of Present Illness: 79-year-old female who presents to the emergency department complaining of not feeling well. She has had a rough several months. She has a past medical history of atrial fibrillation, pacemaker placement, glaucoma, GERD, hypertension. 4 to 6 months ago she began to experience uncontrollable anxiety. She would wake up with night terrors. She would have uncontrollable feelings of anxiety and would be overcome by them. She saw her primary care doctor about this and began to take benzodiazepines. From the middle of April until currently she has multiple benzodiazepine prescriptions. This is per my review of her PDMP. She has been prescribed clonazepam, alprazolam, and lorazepam. It is difficult to ascertain exactly what drugs she has been taking when but it seems that she had previously been on clonazepam 0.5 and then for the last 6 weeks has been taking approximately 5 to milligram tablets of lorazepam a day. Her last benzodiazepine use was a milligram of lorazepam at 1230 today and 0.5 mg of clonazepam at 1700 today. She and her recognize that she was having a problem with thebenzodiazepine usage. What made them realize this was that she had a night terror, jumped up out of bed and then had a fall. This fall resulted in back pain. They then sought assistance. They ultimately checked into a rehab facility called [facility] in [place]. This was on 11/05/2025. She checked out of their very early this morning because she was having severe back pain which was not helped by the gabapentin and Tylenol that she was administered. She was having terrible back pain. Her then took her to the emergency department at [facility]. She had workup there which included a CT of the head and a CT of the L-spine. At that time she was diagnosed with an L3 compression fracture. This explained her back pain. She and her were unhappy with the treatment she received at [facility] and therefore he brought her home here to [facility]. The medication regimen that she was on at [facility] included a 6-day taper of phenobarbital, Tylenol as needed, clonidine 0.1 every 6 hours, gabapentin 100 to 300 mg 3 times daily as needed, hydroxyzine 50 to 100 mg 4 times daily as needed, Keppra 500 mg twice daily, Zofran 8 mg every 6 hours as needed, quetiapine 50 to 150 mg daily as needed. Her normal medications were included in these medications and they are latanoprost drops, omeprazole, rivaroxaban 20 mg daily, amlodipine 5 mg daily Upon arriving home. Her realizes that she has altered mental status. She is slower to respond. She is generally weak and having difficulty walking. She says she cannot find things within her home and she cannot speak correctly. She states that she has had very little to eat or drink over the last 2 days and just feels terrible. When she got home and felt terrible she tried to take several doses of benzodiazepines as detailed above. This did not make her feel better and therefore she decided to come to the emergency department. At baseline she is an active independent 79-year-old. She lives in a fpc community in [place] and is very happy there. She plays bridge and has coffee with friends quite often. She drives and meets all of her own needs. She lives with her . They have a son who lives in [place] and is available to them as needed. Her PCP is Dr. Montemayor at [facility]. She does have a POLST at home she states her CODE STATUS is DNR but okay to intubate. Esdras is surrogate medical decision maker. CONSULTS | PROCEDURES Procedures: She had CT of the head and CT of the lumbar spine at [facility] on the date of admission. Reportedly significant for L3 fracture with a negative CT of the head. HOSPITAL COURSE Hospital Course: This is a 79-year-old female who has been seeking care for her anxiety for several months. She has failed treatment with SSRIs because she never takes them for more than several days due to increasing anxiety as she starts SSRIs. She has gotten multiple benzodiazepine prescriptions from multiple providers. She eventually checked herself into a detox center called [facility] for about a day and a half. She was given multiple medications as detailed in the history of present illness. When I initially met her she was suffering from altered mental status associated with these medications and was not safe to discharge home. 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 She has severe uncontrolled anxiety which is unrelenting and incredibly lifestyle limiting. Her TSH was within normal limits. She apparently had had a hx of hyperthyroid She had been off of this for over 1 week. Cardiac telemetry was monitored. There were no arrhythmias. She was admitted to our unit, placed on telemetry and we will let the medications to washout overnight. She improved but by the morning of hospital day 2 was incredibly anxious rating her anxiety at a 12 out of 10 and unable to engage in conversation. This was treated with IV Ativan so that the patient could have therapeutic interactions. From that point forward we worked on titration of Librium so that we could send her home on a reasonable taper. After much discussion it was decided that we would not attempt to restart her on any SSRI but instead we will try tricyclic antidepressant. She was given a dose of amitriptyline on the evening of hospital day 2 and rested fairly well through the evening. She did require some as needed Librium for control of her symptoms. She also required medication for control of her back pain while she was here. On the morning of hospital day 3 I was able to work with the patient and her and determine a plan for taper of Librium therapy. At the same time we will escalate her amitriptyline therapy. Patient has been more given a strict schedule for dosing of these medications. I discussed with the patient that she must follow the medication plan that I have presented to her. She trusts her to control her medications and he will assist her in this. I also discussed the black box warning regarding use of benzodiazepines with narcotics. This patient has chronic narcotic use, about 1.5 tablets of 5 mg [place]'s a day. Further complicating the [place] Ultimately working with the patient and her we will get her 2 days of lorazepam and then she will begin the Librium taper that I have prescribed. This patient has experienced difficulties in the healthcare system getting the care that she feels she needs. I explained to her that responsiveness of healthcare systems and providers can be very frustrating. I feel that she would benefit from some dedicated mental health care. And for that reason, I am recommending referral to our care of psychiatric nurse practitioners. She also would like to reestablish primary care within the [facility] system. She has previously been seen by TYREE Hinds, and appreciated TYREE Hinds as a provider. Have discussed with social work and will try to arrange for outpatient care for this patient. She was discharged home in the care of her in stable condition. ALLERGIES Allergies Allergy/AdvReac Type Severity Reaction Status Date / Time adhesive tape AdvReac Unknown Verified 11/07/25 18:41 bacitracin (From Neosporin AdvReac Rash Verified 11/07/25 18:41 ([id number])) meperidine HCl * (From AdvReac Emesis Verified 11/07/25 18:41 Demerol) morphine AdvReac Anxiety Verified 11/07/25 18:41 neomycin (From Neosporin AdvReac Rash Verified 11/07/25 18:41 ([id number])) polymyxin B (From Neosporin AdvReac Rash Verified 11/07/25 18:41 ([id number])) MEDICATIONS Ambulatory Orders Medication Instructions Recorded Confirmed docusate sodium 100 mg capsule 100 mg PO DAILY ##30 11/07/25 amitriptyline 25 mg tablet See Rx Instructions .Route 11/09/25 .COMPLEX #180 tabs amlodipine 5 mg tablet 5 mg PO DAILY #0 tabs chlordiazepoxide HCl 25 mg capsule See Rx Instructions .Route 11/09/25 .COMPLEX #41 caps chlordiazepoxide HCl 25 mg capsule See Rx Instructions .Route 11/09/25 .COMPLEX #51 caps hydroxyzine pamoate 25 mg capsule 50 mg (2 x 25 mg) PO Q4H PRN 11/09/25 anxiety #30 caps lidocaine 4 % topical patch 1 patch topical DAILY #30 ea 11/09/25 lorazepam 1 mg tablet (Ativan) 2 mg (2 x 1 mg) PO QID #16 tabs 11/09/25 PHYSICAL EXAM AT DISCHARGE Vital Signs: Vital Signs x48h Temp Pulse Resp BP Pulse Ox 11/09/25 15:48 36.5 C 64 16 153/85 H 97 General Appearance: positive No acute distress and Alert Eyes Bilateral: positive Normal inspection ENT: positive ENT inspection nml Neck: positive Nml inspection Respiratory: positive No respiratory distress Abdomen: positive No distention Skin: positive Color nml Extremities: positive No pedal edema LABS 11/09/25 05:05 11/09/25 05:05 FOLLOW UP Follow Up: TYREE Hinds to re establish primary care. Mental health [facility] PS[facility] for pharmacological management of her severe anxiety. Recommend staying off benzodiazepines once taper is complete. TIME SPENT Time Spent in Discharge (Minutes): 65 Discharge Plan Discharge Patient Disposition: Home, Self Care Condition: Stable Prescriptions: New amitriptyline 25 mg tablet See Rx Instructions .ROUTE .COMPLEX Qty: 180 0RF Rx Instructions: 50mg by mouth at bedtime for 2 nights, then increase by 25mg every 3rd night as needed for anxiety symptoms. do not take more than 6 tablets at bedtime. amlodipine 5 mg Tablet 5 mg PO DAILY Qty: 0 0RF chlordiazepoxide HCl 25 mg capsule See Rx Instructions .ROUTE .COMPLEX Qty: 41 0RF Rx Instructions: take 1 tab four times daily for 6 days, one tab three times daily for 5 days, one take two times daily for 4 days, one tab at bedtime for 4 days. lidocaine 4 % Adhesive Patch,Medicated 1 patch topical DAILY Qty: 30 0RF hydroxyzine pamoate 25 mg Capsule 50 mg PO Q4H PRN (Reason: anxiety) Qty: 30 0RF lorazepam [Ativan] 1 mg tablet 2 mg PO QID Qty: 16 0RF chlordiazepoxide HCl 25 mg capsule See Rx Instructions .ROUTE .COMPLEX Qty: 51 0RF Rx Instructions: 25mg po four times a day for 6 days, 25mg po three times a day for 5 days, 25mg po two times a day for 4 days, 25mg daily for 4 days Continued docusate sodium 100 MG capsule 100 mg PO DAILY Qty: 30 0RF Discontinued atenolol 25 MG tablet 50 mg PO BID clonazepam 0.5 MG tablet 0.25 - 0.5 tab PO BID PRN (Reason: Anxiety) flecainide 50 MG tablet 100 mg PO BID warfarin 1 MG tablet 0.5 mg PO DAILY hydrocodone-acetaminophen [[place]] 1 EACH tablet 1 ea PO Q6H PRN (Reason: Pain) Qty: 15 0RF amoxicillin-pot clavulanate 1 TAB tablet 1 ea PO Q12H Qty: 14 0RF promethazine 25 MG tablet 25 mg PO Q6H PRN (Reason: Nausea / Vomiting) Qty: 15 0RF Activity Restrictions: Activity as Tolerated Diet: Regular Health Concerns: We are getting you outpatient follow-up in the community. We will get you in to see TYREE Hinds at [facility] as soon as possible. We have made the transitions of care nurse at [facility] aware of you. We have also asked for expedited referral into our psychiatric nurse practitioner program. Social work is sending messages to the clinic, and a copy of my summary of this hospitalization will be sent to the clinic. There are many different medications that can be used for anxiety. Seeing an expert in mental health is the best idea. I do not believe that your primary problem is a benzodiazepine addiction. I think that you have uncontrollable anxiety that has led you to try to control it with benzodiazepines. I would like to wean you off of these meds and get you on something you can take every day that will help you. I feel that you need expert consultation, and our social workers are trying to get you access to the care that you need. The recommendation is not to combine narcotics (hydrocodone AKA [place]) with medications like librium. The two medications make each other stronger. THE GOAL IS TO CONTROL YOUR ANXIETY I want you to try Amitriptyline for anxiety. Although you take it once a day, it works throughout the day. The general framework for the amitriptylline is that you can increase the dose by 25 mg every 3rd night, up to a maximum of 150mg at bedtime. This is not a medication that you should stop abruptly. If you decide not to take it, you should decrease the dose at the exact same rate that you increased it. Below I have listed a schedule for you to try the medication, and when to increase the dose. Amitriptylline: Dec 14 and 15 50mg at bedtime. Dec 16 and 17- 75mg at bedtime. Dec 18 and 19- 100mg at bedtime. Dec 20 and - 125 mg at bedtime. Dec and - 150mg at bedtime. DO NOT increase above 150mg at bedtime. Daytime dose of this medication can be added, but once again, I would like you to see someone in the outpatient environment before changing this plan. Librium: This is a long acting benzodiazepine. You need to take this exactly as this schedule is written. it is not an option for you to take more than what is prescribed. I am starting you out on a relatively strong dose, compared to what you have had here. I am taking into account the lorazepam you have also had while admitted here. Last dose of the day, always at bedtime. Nov 09, 15, 16, 17, 18, 19: 25mg four times a day Nov 15, ,, 23, 24: 25mg three times a day. Nov 20,,, : 25mg two times a day. Nov 24,, , Nov 27: 25mg at bedtime. I have enjoyed trying to help you through this challenging time and I wish you all the best. Print Language: Turkmen Patient Instructions: Understanding Anxiety Disorders Follow-up Care: Lavonne Hinds PA-C [Primary Care Provider, Family Practice] Vitals documented within 30 minutes of discharge?: Yes"
[2025-11-09 15:49] VITALS: BP 153/85; TEMP 97.7; O2SAT 97
== END 2025-11-09 15:57 | disposition home or self-care (01) | DRG 880 ==
LOC: MS2 18:24 → ED 18:24 → MS2 22:22
PROVIDERS: ADMIT Physician Assistant Medical; ATTEND Physician Assistant Medical
DX: Z95.0 Presence of cardiac pacemaker; F13.239 Sedative, hypnotic or anxiolytic dependence with withdrawal, unspecified; M54.9 Dorsalgia, unspecified; T42.4X5A Adverse effect of benzodiazepines, initial encounter; I48.20 Chronic atrial fibrillation, unspecified; F51.4 Sleep terrors [night terrors]; T50.915A Adverse effect of multiple unspecified drugs, medicaments and biological substances, initial encounter; R53.1 Weakness; Z79.01 Long term (current) use of anticoagulants; F13.939 Sedative, hypnotic or anxiolytic use, unspecified with withdrawal, unspecified; Y92.099 Unspecified place in other non-institutional residence as the place of occurrence of the external cause; I10 Essential (primary) hypertension; K21.9 Gastro-esophageal reflux disease without esophagitis; F41.9 Anxiety disorder, unspecified; Z66 Do not resuscitate; S32.039D Unspecified fracture of third lumbar vertebra, subsequent encounter for fracture with routine healing; R41.82 Altered mental status, unspecified; R26.2 Difficulty in walking, not elsewhere classified; W19.XXXD Unspecified fall, subsequent encounter